=== PATIENT | female | born 1995 | race Caucasian/White ===

== ENCOUNTER 2016-05-11 02:19 | Emergency (ER) | payer OTHER ==
[~2016-05-11] VITALS: Ht 165.1 cm; Wt 62.0 kg
[2016-05-11 02:51] VITALS: BP 139/89; PULSE 129; RESP 18; TEMP 98.4; O2SAT 97
--- NOTE | 2016-05-11 02:58 | PD ---
HPI Chief Complaint: act Time Seen by Provider: 02:46 Travel History International Travel<30 days: No Contact w/Intl Traveler<30days: No Traveled to known affect area: No History of Present Illness HPI 21-year-old white female presents to emergency department under . The patient was found in a parked car in a park. The patient alleges that she had left the house after having an argument with her significant other. She was carrying her bags with her in attempts to leave. She had been drinking alcohol earlier. She allegedly had stopped at the to buy cigarettes. She was offered a ride by an unknown individual. They had stopped in a park to talk. Police rolled up on the parked car. She did not know the commercial driver the vehicle. She did not have a ride home and it was felt that she should come to the hospital due to her level of intoxication. The commercial driver of the vehicle did have means of getting home. The patient here denies any toxic ingestions. She denies any suicidal homicidal ideation. She was brought to the retirement and was referred to the ER due to her tachycardia. She denies any fever or chills. No chest pain or shortness of breath. She denies any stimulants. She admits to alcohol. FOR[facility]LY [facility], [facility] Past Medical History Narrative Medical Depression, cutting, anxiety, scoliosis Tetanus Vaccination: < 5 Years Past Surgical History Surgical History: No Previous Surgery Social History Alcohol Use: Yes Tobacco Use: No Substance Use: Yes (marijuana) Review of Systems ROS Limitations: Intoxication Except as stated in HPI: all other systems reviewed are Neg Physical Exam Narrative GENERAL: Well-developed, well-nourished in no apparent distress. Nontoxic appearing. Smells of EtOH and appears intoxicated HEAD: Normocephalic, atraumatic. EYES: Pupils equal round and reactive. Extraocular motions intact. No scleral icterus. No injection or drainage. ENT: Nose clear. Throat without erythema, tonsillar hypertrophy or exudate. Uvula midline. Airway patent. NECK: Trachea midline. Supple, nontender, moves head freely. No central bony tenderness or spasm. CARDIOVASCULAR: Regular rate and rhythm without murmurs, gallops, or rubs. RESPIRATORY: Clear to auscultation. Breath sounds equal bilaterally. No wheezes , rales, or rhonchi. GASTROINTESTINAL: Abdomen soft, non-tender, nondistended. No hepato-splenomegaly , or palpable masses. No guarding. EXTREMITIES: No clubbing, cyanosis, or edema. No joint tenderness. Patient has abrasions on her knees. BACK: Nontender without deformity. No flank tenderness. NEUROLOGICAL: Awake, alert and oriented x 3 .Cranial nerves grossly intact. Motor and sensory grossly within normal limits. Slurred speech. MDM Medical Decision Making Medical Screen Exam Complete: Yes Emergency Medical Condition: Yes Medical Record Reviewed: Yes Differential Diagnosis Differential diagnoses: Alcohol intoxication, substance abuse, electrolyte abnormality, malingering Narrative Course The patient is here under [place] act. She is given Gatorade to drink. She' ll be monitored for her tachycardia. Once her heart rate comes down, her level of intoxication improves she will be determined to be medically stable and be discharged. This is alcohol intoxication, July[place] act Diagnosis Primary Impression: Alcohol intoxication Qualified Code: F10.120 - Alcohol intoxication, uncomplicated Additional Instructions: Rest. Increase fluids. Avoid alcohol. Avoid illegal substances. Follow-up with [facility] for detox. Do not operate a car or any heavy machinery under the influence of alcohol or drugs. Follow-up with a medical doctor this week. Return to the ER for emergencies Med/Other Pt SpecificInfo: No Meds Exist/No RX given Disposition: 01 DISCHARGE HOME Condition: Stable Danilo Martinez May 11, 2016 02:58
== END 2016-05-11 06:18 | disposition home or self-care (01) ==
LOC: NEPB 02:19
DX: F10.120 Alcohol abuse with intoxication, uncomplicated (principal); R00.0 Tachycardia, unspecified
CPT/HCPCS: 99284

== ENCOUNTER 2016-10-28 19:39 | Emergency (ER) | payer OTHER ==
[~2016-10-28] VITALS: Ht 154.9 cm; Wt 60.0 kg
[2016-10-28 19:50] VITALS: BP 154/102; PULSE 115; RESP 18; TEMP 100; O2SAT 97
[2016-10-28] MEDS ORDERED: SODIUM CHLOR 0.9% 1000 ML INJ 1,000 ML IV ONE (20:00)
--- NOTE | 2016-10-28 20:02 | PD ---
HPI Chief Complaint: Psychiatric Symptoms Time Seen by Provider: 19:48 Travel History International Travel<30 days: No Contact w/Intl Traveler<30days: No Traveled to known affect area: No History of Present Illness HPI The patient is a 21-year-old female who presents to the emergency department as a Madrigal act via EMS. According to EMS the patient smoked PCP approximately 45 minutes prior to arrival. The police apparently were called to the scene with EMS the patient's heart rate was noted to be 150. The patient refused medical care at that time and was subsequently placed under a Madrigal act by the police department. The patient has a history of smoking PCP in the past, denies any current physical complaints except for thirst. The patient denies any suicidal ideation, homicidal ideation, or alcohol ingestion. She does have a history of depression and anxiety for which she takes sertraline. Patient denies any company chest pain, shortness breath, nausea, vomiting, or abdominal pain. Symptoms are moderate, exacerbated after smoking PCP, and self alleviating. PFSH Past Medical History Narrative Medical Depression, anxiety ?: Not LMP: 10/16/16 Past Surgical History Surgical History: No Previous Surgery Social History Alcohol Use: Yes Tobacco Use: No Substance Use: Yes (marijuana) Allergies-Medications (Allergen,Severity, Reaction): Coded Allergies: No Known Allergies (Unverified , 10/28/16) Reported Meds & Prescriptions Reported Meds & Active Scripts Active Reported Sertraline (Sertraline HCl) 50 Mg Tab 50 Mg PO DAILY Review of Systems Except as stated in HPI: all other systems reviewed are Neg General / Constitutional: No: Fever HENT: No: Lightheadedness Cardiovascular: No: Chest Pain or Discomfort Respiratory: No: Shortness of Breath Gastrointestinal: No: Nausea, Vomiting, Abdominal Pain Psychiatric: Positive: Anxiety, Depression, Substance Abuse (PCP), No: Suicidal Ideations, Homicidal Ideation Physical Exam Narrative GENERAL: Awake, alert, very pleasant 21-year-old female who appears her stated age is in no acute respiratory distress. SKIN: Focused skin assessment warm/dry. Tattoo noted on the right foot. HEAD: Atraumatic. Normocephalic. EYES: Pupils equal and round. Mild vertical nystagmus noted. Pupils are 4 mm bilateral and reactive. Patient is able to see fingers at a distance of 2 feet without difficulty. ENT: No nasal bleeding or discharge. Mucous membranes pink and moist. NECK: Trachea midline. No JVD. CARDIOVASCULAR: Regular, tachycardic with a heart rate 115. RESPIRATORY: No accessory muscle use. Clear to auscultation. Breath sounds equal bilaterally. GASTROINTESTINAL: Abdomen soft, non-tender, nondistended. No rebound tenderness. MUSCULOSKELETAL: No obvious deformities. No clubbing. No cyanosis. No edema. NEUROLOGICAL: Awake and alert. No obvious cranial nerve deficits. Motor grossly within normal limits. Normal speech. Nonfocal. Oriented 4. Follows commands without difficulty. PSYCHIATRIC: Appropriate mood and affect; insight and judgment normal. Data Data Last Documented VS Vital Signs Date Time Temp Pulse Resp B/P Pulse Ox O2 Delivery O2 Flow Rate FiO2 10/28/16 20:45 104 10/28/16 19:50 100.0 18 154/102 97 Orders Complete Blood Count With Diff (10/28/16 19:48) Comprehensive Metabolic Panel (10/28/16 19:48) Psych Screen (10/28/16 19:48) Drug Screen, Random Urine (10/28/16 19:48) Alcohol (Ethanol) (10/28/16 19:48) Sodium Chlor 0.9% 1000 Ml Inj (Ns 1000 M (10/28/16 20:00) Labs Laboratory Tests Test 10/28/16 19:50 White Blood Count 11.6 TH/MM3 Red Blood Count 4.33 MIL/MM3 Hemoglobin 13.9 GM/DL Hematocrit 40.8 % Mean Corpuscular Volume 94.1 FL Mean Corpuscular Hemoglobin 32.0 PG Mean Corpuscular Hemoglobin 34.0 % Concent Red Cell Distribution Width 13.7 % Platelet Count 227 TH/MM3 Mean Platelet Volume 9.7 FL Neutrophils (%) (Auto) 74.6 % Lymphocytes (%) (Auto) 15.7 % Monocytes (%) (Auto) 8.7 % Eosinophils (%) (Auto) 0.6 % Basophils (%) (Auto) 0.4 % Neutrophils # (Auto) 8.7 TH/MM3 Lymphocytes # (Auto) 1.8 TH/MM3 Monocytes # (Auto) 1.0 TH/MM3 Eosinophils # (Auto) 0.1 TH/MM3 Basophils # (Auto) 0.1 TH/MM3 CBC Comment DIFF FINAL Differential Comment Sodium Level 136 MEQ/L Potassium Level 3.1 MEQ/L Chloride Level 102 MEQ/L Carbon Dioxide Level 24.5 MEQ/L Anion Gap 10 MEQ/L Blood Urea Nitrogen 8 MG/DL Creatinine 0.94 MG/DL Estimat Glomerular Filtration 74 ML/MIN Rate Random Glucose 99 MG/DL Calcium Level 8.7 MG/DL Total Bilirubin 0.4 MG/DL Aspartate Amino Transf 17 U/L (AST/SGOT) Alanine Aminotransferase 17 U/L (ALT/SGPT) Alkaline Phosphatase 75 U/L Total Protein 7.9 GM/DL Albumin 3.9 GM/DL Urine Opiates Screen NEG Urine Barbiturates Screen NEG Urine Amphetamines Screen NEG Urine Benzodiazepines Screen NEG Urine Cocaine Screen NEG Urine Cannabinoids Screen POS Ethyl Alcohol Level LESS THAN 3 MG/DL MDM Medical Decision Making Medical Screen Exam Complete: Yes Emergency Medical Condition: Yes Medical Record Reviewed: Yes Interpretation(s) Laboratory Tests Test 10/28/16 19:50 White Blood Count 11.6 TH/MM3 Red Blood Count 4.33 MIL/MM3 Hemoglobin 13.9 GM/DL Hematocrit 40.8 % Mean Corpuscular Volume 94.1 FL Mean Corpuscular Hemoglobin 32.0 PG Mean Corpuscular Hemoglobin 34.0 % Concent Red Cell Distribution Width 13.7 % Platelet Count 227 TH/MM3 Mean Platelet Volume 9.7 FL Neutrophils (%) (Auto) 74.6 % Lymphocytes (%) (Auto) 15.7 % Monocytes (%) (Auto) 8.7 % Eosinophils (%) (Auto) 0.6 % Basophils (%) (Auto) 0.4 % Neutrophils # (Auto) 8.7 TH/MM3 Lymphocytes # (Auto) 1.8 TH/MM3 Monocytes # (Auto) 1.0 TH/MM3 Eosinophils # (Auto) 0.1 TH/MM3 Basophils # (Auto) 0.1 TH/MM3 CBC Comment DIFF FINAL Differential Comment Sodium Level 136 MEQ/L Potassium Level 3.1 MEQ/L Chloride Level 102 MEQ/L Carbon Dioxide Level 24.5 MEQ/L Anion Gap 10 MEQ/L Blood Urea Nitrogen 8 MG/DL Creatinine 0.94 MG/DL Estimat Glomerular Filtration 74 ML/MIN Rate Random Glucose 99 MG/DL Calcium Level 8.7 MG/DL Total Bilirubin 0.4 MG/DL Aspartate Amino Transf 17 U/L (AST/SGOT) Alanine Aminotransferase 17 U/L (ALT/SGPT) Alkaline Phosphatase 75 U/L Total Protein 7.9 GM/DL Albumin 3.9 GM/DL Urine Opiates Screen NEG Urine Barbiturates Screen NEG Urine Amphetamines Screen NEG Urine Benzodiazepines Screen NEG Urine Cocaine Screen NEG Urine Cannabinoids Screen POS Ethyl Alcohol Level LESS THAN 3 MG/DL Differential Diagnosis Differential diagnosis includes PCP ingestion, substance induced mood disorder, sympathomimetic reaction, Madrigal act, depression, anxiety disorder, mood disorder NOS. Narrative Course Labs were drawn and sent. Psychiatric evaluation was ordered. The patient was administered 1 L of IV fluids and monitored in the emergency department. Potassium is low at 3.1, was replaced orally. Tox screen is positive for cannabinoids. The patient is medically cleared to be evaluated by psychiatry. Diagnosis Primary Impression: Ingestion of substance Qualified Code: T65.91XA - Ingestion of substance, accidental or unintentional , initial encounter Additional Impression: Hypokalemia Condition: Stable Joe London MD Oct 28, 2016 20:02
[2016-10-28] MEDS ORDERED: SERT-132 PO (20:04)
[2016-10-28 20:24] LABS: AUTOMATED NEUTROPHIL # 8.7 TH/MM3 (1.8-7.7); BASOPHIL # 0.1 TH/MM3 (0-0.2); BASOPHIL % 0.4 % (0.0-2.0); EOSINOPHIL # 0.1 TH/MM3 (0-0.4); EOSINOPHIL % 0.6 % (0.0-4.0); HEMATOCRIT 40.8 % (35.0-46.0); HEMO FLAGS DIFF FINAL; LYMPH % 15.7 % (9.0-44.0); LYMPHOCYTE # 1.8 TH/MM3 (1.0-4.8); MEAN CELL VOLUME 94.1 FL (80.0-100.0); MONO % 8.7 % (0.0-8.0); NEUT % 74.6 % (16.0-70.0); PLATELET COUNT 227 TH/MM3 (150-450); RED BLOOD COUNT 4.33 MIL/MM3 (4.00-5.30); RED CELL DISTRIBUTION WIDTH 13.7 % (11.6-17.2); WHITE BLOOD COUNT 11.6 TH/MM3 (4.0-11.0)
[2016-10-28 20:42] LABS: AMPHETAMINE, URINE NEG (NEG); BARBITURATES, URINE NEG (NEG); COCAINE, URINE NEG (NEG)
[2016-10-28 20:45] VITALS: PULSE 104
[2016-10-28 20:49] LABS: ALT (GPT) 17 U/L (10-53); ANION GAP 10 MEQ/L (5-15); AST (GOT) 17 U/L (15-37); BICARBONATE 24.5 MEQ/L (21.0-32.0); BLOOD UREA NITROGEN 8 MG/DL (7-18); CHLORIDE 102 MEQ/L (98-107); GLOMERULAR FILTRATION RATE 74 ML/MIN (>89); POTASSIUM 3.1 MEQ/L (3.5-5.1); SODIUM (NA) 136 MEQ/L (136-145)
[2016-10-28 20:52] LABS: ALKALINE PHOSPHATASE 75 U/L (45-117); TOTAL BILIRUBIN ADULT 0.4 MG/DL (0.2-1.0)
[2016-10-28] MEDS ORDERED: POTASSIUM CHLORIDE 20 MEQ CONTROLLED RELEASE TAB PO ONE (21:00)
[2016-10-28 21:15] VITALS: BP 144/96; PULSE 98; RESP 18; O2SAT 98
[2016-10-29 06:57] VITALS: BP 131/92; PULSE 96; RESP 16; O2SAT 99
--- NOTE | 2016-10-29 09:30 | PD ---
History of Present Illness Chief Complaint: Psychiatric Symptoms Time Seen by Provider: 09:20 Travel History International Travel<30 Days: No Contact w/Intl Traveler<30days: No Known affected area: No Legal Status Legal Status: Madrigal Act Madrigal Act Signed By: True Johnson History of Present Illness: History of Present Illness HPI The patient is a 21-year-old female with a reported history of depression who presents to the emergency department as a Madrigal act initiated by AUNDREA . The BA reports states " blood pressure, unknown narcotic , extreme paranoia and unable to complete full sentences.". ED documentation is reviewed and is included " According to EMS the patient smoked PCP approximately 45 minutes prior to arrival. The police apparently were called to the scene with EMS the patient's heart rate was noted to be 150. The patient refused medical care at that time and was subsequently placed under a Madrigal act by the police department. The patient has a history of smoking PCP in the past, denies any current physical complaints except for thirst. The patient denies any suicidal ideation, homicidal ideation, or alcohol ingestion. She does have a history of depression and anxiety for which she takes sertraline. Patient denies any company chest pain, shortness breath, nausea, vomiting, or abdominal pain. Symptoms are moderate, exacerbated after smoking PCP, and self alleviating." Patient seen. record is reviewed. One previous visit to Ed while intoxicated and under the influence of ETOH. Current toxicology is positive for cannabinoids which she admits to using. She is alert, oriented, calm, cooperative. speech is clear and logical. No psychosis, No paranoia. States " I called the police because my boyfriend was unresponsive. We both used PCP. When the paramedics arrived I was nervous and they were asking me so many questions and I couldn't answer them so they brought me here. We purchased some PCP and wanted to " enjoy their weekend" but it didn't work out like that. There is no suicidality. No significant psychiatric symptomatology. PFS Past Medical History Anxiety: Yes Depression: Yes ?: Not LMP: 10/16/16 Past Surgical History Surgical History: No Previous Surgery Oral Surgery: Yes Psychiatric History Psychiatric History Hx Psychiatric Treatment: YES IN [place] FOR DEPRESSION Currently on Zoloft. History of Inpatient Treatment: No Guns or firearms in home: No Social History Born in [place]. In [place] x 2 years. Has completed 12th grade. Currently works as a [employer] operator. Lives with boyfriend. Hx Alcohol Use: No (QUIT) Hx Tobacco Use: Yes Hx Substance Use: Yes (marijuana, PCP) Substance Use Type: Alcohol, Marijuana, Alessandro Dust-PCP Other Substances Used: NO LONGER DRINKS ETOH Hx of Substance Use Treatment: No Family Psychiatric History Negative Allergies-Medications (Allergen,Severity, Reaction): Coded Allergies: No Known Allergies (Unverified , 10/28/16) Reported Meds & Prescriptions Reported Meds & Active Scripts Active Reported Sertraline (Sertraline HCl) 50 Mg Tab 50 Mg PO DAILY Review of Systems Except as stated in HPI: all other systems reviewed are Neg Psychiatric: COMPLAINS OF: Anxiety (about being here) Exam Alert: Yes [place]: Person (ox4) Mood: Calm Affect: Tearful (worried over her boyfriend) Speech: Clear, Logical Eye Contact: Normal Memory Intact: Comment (No impairmetn) Hallucinations: Other (neagtive) Delusions: No Suicidal: Ideation (deneis any) Homicidal: Ideation (denies) Insight/Judgement Poor. Not impaired MDM Medical Decision Making Medical Record Reviewed: Yes Assessment/Plan 21 year old female who is under a BA after she smoked some PCP with her boyfriend . Later he became unresponsive and called 911. She was brought to ED for evaluation. At this time she does not present any criteria to remain on BA or does she present any criteria for psychiatric treatment. BA will be lifted Extensive counseling regarding g substance use. Discharge home. Orders Complete Blood Count With Diff (10/28/16 19:48) Comprehensive Metabolic Panel (10/28/16 19:48) Psych Screen (10/28/16 19:48) Drug Screen, Random Urine (10/28/16 19:48) Alcohol (Ethanol) (10/28/16 19:48) Sodium Chlor 0.9% 1000 Ml Inj (Ns 1000 M (10/28/16 20:00) Potassium Chloride (Kcl) (10/28/16 21:00) Diet Regular Basic (10/29/16 Breakfast) Results Vital Signs Date Time Temp Pulse Resp B/P Pulse Ox O2 Delivery O2 Flow Rate FiO2 10/29/16 06:57 96 16 131/92 99 Room Air 10/28/16 21:15 98 18 144/96 98 Room Air 10/28/16 20:45 104 10/28/16 19:50 100.0 115 18 154/102 97 Laboratory Tests Test 10/28/16 19:50 White Blood Count 11.6 Red Blood Count 4.33 Hemoglobin 13.9 Hematocrit 40.8 Mean Corpuscular Volume 94.1 Mean Corpuscular Hemoglobin 32.0 Mean Corpuscular Hemoglobin 34.0 Concent Red Cell Distribution Width 13.7 Platelet Count 227 Mean Platelet Volume 9.7 Neutrophils (%) (Auto) 74.6 Lymphocytes (%) (Auto) 15.7 Monocytes (%) (Auto) 8.7 Eosinophils (%) (Auto) 0.6 Basophils (%) (Auto) 0.4 Neutrophils # (Auto) 8.7 Lymphocytes # (Auto) 1.8 Monocytes # (Auto) 1.0 Eosinophils # (Auto) 0.1 Basophils # (Auto) 0.1 CBC Comment DIFF FINAL Differential Comment Sodium Level 136 Potassium Level 3.1 Chloride Level 102 Carbon Dioxide Level 24.5 Anion Gap 10 Blood Urea Nitrogen 8 Creatinine 0.94 Estimat Glomerular Filtration 74 Rate Random Glucose 99 Calcium Level 8.7 Total Bilirubin 0.4 Aspartate Amino Transf 17 (AST/SGOT) Alanine Aminotransferase 17 (ALT/SGPT) Alkaline Phosphatase 75 Total Protein 7.9 Albumin 3.9 Urine Opiates Screen NEG Urine Barbiturates Screen NEG Urine Amphetamines Screen NEG Urine Benzodiazepines Screen NEG Urine Cocaine Screen NEG Urine Cannabinoids Screen POS Ethyl Alcohol Level LESS THAN 3 Diagnosis Primary Impression: Substance abuse Additional Impressions: Ingestion of substance Hypokalemia Psychiatrically Cleared: Yes Med/ Other Pt Specific Info: No Change to Meds Disposition: 01 DISCHARGE HOME Condition: Stable Problem Qualifiers Additional Impressions: Ingestion of substance Qualified Code: T65.91XA - Ingestion of substance, accidental or unintentional , initial encounter Tegan Andrew Oct 29, 2016 09:30
== END 2016-10-29 10:38 | disposition home or self-care (01) ==
LOC: NEPC 19:39
DX: T40.991A Poisoning by other psychodysleptics [hallucinogens], accidental (unintentional), initial encounter (principal); E87.6 Hypokalemia; F41.9 Anxiety disorder, unspecified; F32.9 Major depressive disorder, single episode, unspecified; Z87.891 Personal history of nicotine dependence
CPT/HCPCS: 80053; 80307; 85025; 96360; 99284; J7030